=== PATIENT | female | born 1995 | race Caucasian/White ===

== ENCOUNTER 2020-08-20 20:33 | Emergency (ER) | payer OTHER, SELFPAY ==
[2020-08-20 20:49] VITALS: BP 127/85; PULSE 83; RESP 18; TEMP 36.8; O2SAT 99; BMI 24.2
--- NOTE | 2020-08-20 21:26 | ECG_ITS ---
[facility] Test Date: 2020-08-20 Pat Name: Kassandra Ureña Department: Room: Gender: Female Ultrasonographer: : 1995 Requested By: Adina Hurtado Order Number: [id number] Sha MD: LON [place]ORADO Measurements Intervals [place] Rate: 66 P: 62 [place]: 138 QRS: 82 QRSD: 96 T: 51 QT: 409 QTc: 431 Interpretive Statements SINUS RHYTHM INCOMPLETE RIGHT BUNDLE BRANCH BLOCK [90+ ms QRS DURATION, TERMINAL R IN V1/V2, 40+ ms S IN I/aVL/V4/V5/V6] No previous ECG available for comparison Electronically Signed On 08-21-2020 18:40:26 CDT by LON COLORADO [id number] f
[2020-08-20 21:28] VITALS: BP 123/81; PULSE 76; RESP 18; O2SAT 100
[2020-08-20] MEDS: sodium chloride 0.9% 1,000 ML 999 ML IV ×2 (21:40→22:38)
[2020-08-20 21:42] VITALS: BP 121/78; PULSE 68; RESP 17; O2SAT 99
[2020-08-20 21:44] VITALS: BP 106/58; BP 119/76; BP 129/76; PULSE 105; PULSE 72; PULSE 93
[2020-08-20 21:44] LABS: Basophils % 0.5 %; Eosinophils # 0.1 10^3/uL (0.0-0.8); Eosinophils % 0.8 %; Hematocrit 40.3 % (37.0-47.0); Hemoglobin 13.6 g/dL (11.5-15.3); Lymphocytes # 2.5 10^3/uL (0.8-4.8); Lymphocytes % 40.6 %; Mean Corpuscular HGB Conc 33.7 g/dL (30.0-36.0); Mean Corpuscular Hemoglobin 32.3 pg (28.0-34.0); Mean Corpuscular Volume 95.7 fL (81-99); Mean Platelet Volume 11.4 fL (7.4-10.4); Monocytes # 0.5 10^3/uL (0.2-0.9); Monocytes % 8.5 %; Neutrophils # 3.05 10^3/uL (1.8-7.7); Neutrophils % 49.3 %; Nucleated Red Blood Cells % 0 %; Platelet Count 224 10^3/cmm (130-400); Red Blood Count 4.21 10^6/uL (4.1-5.3); Red Cell Distribution Width 12.1 % (12.1-15.1); White Blood Count 6.2 10^3/uL (4.0-10.0)
[2020-08-20 21:56] LABS: HCG, Serum Qual Negative (Negative)
[2020-08-20 21:59] LABS: Alanine Aminotransferase 15 U/L (0-33); Albumin Level 4.8 g/dL (3.5-5.2); Alkaline Phosphatase 42 IU/L (35-105); Aspartate Amino Transferase 26 U/L (0-32); Blood Urea Nitrogen 6 mg/dL (6-20); Calcium 9.3 mg/dL (8.5-10.5); Carbon Dioxide 23 mmol/L (22-29); Chloride 105 mmol/L (98-107); Globulin 2.3 g/dL (1.3-4.6); Glomerular Filtration Rate 103.7 mL/min (90-130); Glucose 86 mg/dL (65-115); Osmolality Calculated 287 mOsm/kg (285-295); Sodium 140 mmol/L (136-145); Total Bilirubin 0.2 mg/dL (0.15-1.2); Total Protein 7.1 g/dL (6.6-8.7)
--- NOTE | 2020-08-20 22:03 | W.ED.DIZZY ---
HPI - Dizziness General: Chief Complaint: Dizziness Stated Complaint: 55-182 HR RATE, DIZZY, COLD Time Seen by Provider: 08/20/20 21:25 Source: patient Mode of arrival: ambulatory Limitations: no limitations History of Present Illness: HPI Narrative: 25-year-old female who states that throughout the day she has felt very anxious and has had some slight dizziness. States her heart rate has been bouncing around has been up in the 100s. She denies any vomiting or diarrhea. She states she does have anxiety and takes meds that did take an extra medicine. States her symptoms are worse with standing improved with rest. Denies any vomiting diarrhea. Denies any chest pain. Denies any headache. She has not had any syncopal events or near syncope. Associated symptoms: Denies chest pain, chills, nausea or vomiting Review of Systems Const: Denies: fever(s), chills, body aches or change in appetite Eyes: Denies: blurry vision or eye discomfort ENMT: Denies: throat pain or dental pain Card: Denies: chest pain Resp: Denies: dyspnea GI: Denies: abdominal pain, nausea, vomiting or diarrhea : Denies: dysuria Musc: Denies: neck pain or back pain Skin/Breast: Denies: rash Neuro: Reports: dizziness Psych: Denies: depression Yuriy/Lymph: Denies: easy bruising All/Imm: Denies: urticaria Physical Exam Const: COMMON NORMALS: no acute distress, patient oriented x3 and healthy appearing HENMT: COMMON NORMALS: normocephalic and atraumatic HEAD & SCALP: normocephalic and atraumatic Eye: COMMON NORMALS: Equal, round and reactive pupils present and EOMs intact bilaterally PUPIL: Yes Equal, round and reactive pupils present Neck/C-Spine: COMMON NORMALS: full ROM and supple Chest: COMMONS NORMALS: normal inspection of the chest and normal palpation of entire chest wall Resp: COMMON NORMALS: normal respiratory effort, No retractions, No use of accessory muscles and clear to auscultation bilaterally AUSCULTATION: clear to auscultation bilaterally Cardio: COMMON NORMALS: regular rate, regular rhythm and No murmurs present (Cardio) RATE: regular rate RHYTHM: regular rhythm GI: COMMON NORMALS: Normal to inspection, nondistended, normoactive bowel sounds present, Soft to palpation, non-tender and no masses PALPATION: Yes Soft to palpation Extremity: COMMON NORMALS: normal to inspection and full ROM Neuro: COMMON NORMALS: patient oriented x3, moves all extremities and no focal motor deficits Psych: COMMON NORMALS: mental status grossly normal, Normal thought process present and cooperative THOUGHT PROCESS: Normal thought process present Skin: COMMON NORMALS: no rashes or lesions noted and no wounds GENERAL SKIN EXAM: no rashes or lesions noted Course Vital Signs: Vital signs: Vital Signs Temperature 98.3 F 08/20/20 20:49 Pulse Rate 79 08/20/20 22:38 Respiratory Rate 21 H 08/20/20 22:38 Blood Pressure 135/78 08/20/20 22:38 Pulse Oximetry 100 08/20/20 22:38 MDM - Dizziness MDM Narrative: Medical decision making narrative: Patient presents here with some anxiety along with dizziness. Patient is well-appearing here and feels much improved after IV fluids. Her blood work here is all negative. She is stable for discharge is to follow-up with PCP and return if worsening. Lab Data: Labs: Lab Results 08/20/20 08/20/20 08/20/20 Range/Units 21:37 21:37 21:37 WBC 6.2 (4.0-10.0) 10^3/ uL RBC 4.21 (4.1-5.3) 10^6/u L Hgb 13.6 (11.5-15.3) g/dL Hct 40.3 (37.0-47.0) % MCV 95.7 (81-99) fL MCH 32.3 (28.0-34.0) pg MCHC 33.7 (30.0-36.0) g/dL RDW 12.1 (12.1-15.1) % Plt Count 224 (130-400) 10^3/c mm MPV 11.4 H (7.4-10.4) fL Neut % (Auto) 49.3 % Lymph % (Auto) 40.6 % Placer % (Auto) 8.5 % Eos % (Auto) 0.8 % Baso % (Auto) 0.5 % Neut # (Auto) 3.05 (1.8-7.7) 10^3/u L Lymph # (Auto) 2.5 (0.8-4.8) 10^3/u L Placer # (Auto) 0.5 (0.2-0.9) 10^3/u L Eos # (Auto) 0.1 (0.0-0.8) 10^3/u L Baso # (Auto) 0.0 (0.0-0.1) 10^3/u L Nucleated RBC % (a uto) 0 % Nucleated RBCs # 0.0 /100WBC Sodium 140 (136-145) mmol/L Potassium 3.5 (3.5-5.1) mmol/L Chloride 105 (98-107) mmol/L Carbon Dioxide 23 (22-29) mmol/L Anion Gap 15.5 (5-19) BUN 6 (6-20) mg/dL Creatinine 0.7 (0.5-0.9) mg/dL GFR Calculation 103.7 (90-130) mL/min Glucose 86 (65-115) mg/dL Calculated Osmolal ity 287 (285-295) mOsm/k g Calcium 9.3 (8.5-10.5) mg/dL Total Bilirubin 0.2 (0.15-1.2) mg/dL AST 26 (0-32) U/L ALT 15 (0-33) U/L Alkaline Phosphata se 42 (35-105) IU/L Total Protein 7.1 (6.6-8.7) g/dL Albumin 4.8 (3.5-5.2) g/dL Globulin 2.3 (1.3-4.6) g/dL HCG, Qual Negative (Negative) Urine Color (Yellow) Urine Appearance (CLEAR) Urine pH (5-7) Ur Specific Gravit y (1.005-1.030) Urine Protein (Negative) Urine Glucose (UA) (Normal) Urine Ketones (Negative) Urine Blood (Negative) Urine Nitrate (Negative) Urine Bilirubin (Negative) Urine Urobilinogen (Negative) mg/dL Ur Leukocyte Saundra ase (Negative) 08/20/20 Range/Units 22:26 WBC (4.0-10.0) 10^3/ uL RBC (4.1-5.3) 10^6/u L Hgb (11.5-15.3) g/dL Hct (37.0-47.0) % MCV (81-99) fL MCH (28.0-34.0) pg MCHC (30.0-36.0) g/dL RDW (12.1-15.1) % Plt Count (130-400) 10^3/c mm MPV (7.4-10.4) fL Neut % (Auto) % Lymph % (Auto) % Placer % (Auto) % Eos % (Auto) % Baso % (Auto) % Neut # (Auto) (1.8-7.7) 10^3/u L Lymph # (Auto) (0.8-4.8) 10^3/u L Placer # (Auto) (0.2-0.9) 10^3/u L Eos # (Auto) (0.0-0.8) 10^3/u L Baso # (Auto) (0.0-0.1) 10^3/u L Nucleated RBC % (a uto) % Nucleated RBCs # /100WBC Sodium (136-145) mmol/L Potassium (3.5-5.1) mmol/L Chloride (98-107) mmol/L Carbon Dioxide (22-29) mmol/L Anion Gap (5-19) BUN (6-20) mg/dL Creatinine (0.5-0.9) mg/dL GFR Calculation (90-130) mL/min Glucose (65-115) mg/dL Calculated Osmolal ity (285-295) mOsm/k g Calcium (8.5-10.5) mg/dL Total Bilirubin (0.15-1.2) mg/dL AST (0-32) U/L ALT (0-33) U/L Alkaline Phosphata se (35-105) IU/L Total Protein (6.6-8.7) g/dL Albumin (3.5-5.2) g/dL Globulin (1.3-4.6) g/dL HCG, Qual (Negative) Urine Color Yellow (Yellow) Urine Appearance Clear (CLEAR) Urine pH 5 (5-7) Ur Specific Gravit y 1.020 (1.005-1.030) Urine Protein Neg (Negative) Urine Glucose (UA) Norm (Normal) Urine Ketones Negative (Negative) Urine Blood Neg (Negative) Urine Nitrate Negative (Negative) Urine Bilirubin Neg (Negative) Urine Urobilinogen Norm (Negative) mg/dL Ur Leukocyte Saundra ase Negative (Negative) EKG Data^: EKG 1: Attestation: I personally reviewed and interpreted this EKG as follows: EKG interpretation date: 08/20/20 EKG interpretation time: 21:43 Interpretation: nsr hr [address] or t wave abnormalities qrs 96 qtc 423 Discharge Plan Discharge Patient Disposition: Home Clinical Impression: Dizziness Condition: Stable Discharge Orders: Discharge ED (Routine); Ordered 08/20/20 Ordered By: Adina Hurtado Discharge Diet: Advance as tolerated Discharge Activity: Resume usual activity Patient Instructions: Dizziness (ED) Coding Level of Care Code ED Crm Technical Lead for Chg Fwd Exam Comprehensive
[2020-08-20 22:06] LABS: Anion Gap 15.5 (5-19); Potassium 3.5 mmol/L (3.5-5.1)
[2020-08-20 22:35] LABS: Add Urine Microscopic? NO; Charge for UA Resulting for Rev
[2020-08-20 22:38] VITALS: BP 135/78; PULSE 79; RESP 21; O2SAT 100
[2020-08-20 22:39] LABS: Bilirubin Urine Neg (Negative); Blood Urine Neg (Negative); Glucose Urine UA Norm (Normal); Ketones Urine Negative (Negative); Leukocyte Esterase Urine Negative (Negative); Nitrate Urine Negative (Negative); Protein Urine Neg (Negative); Urine Appearance Clear (CLEAR); Urine Color Yellow (Yellow); Urobilinogen Urine Norm (Negative); pH Urine 5 (5-7)
[2020-08-20 23:11] VITALS: BP 129/79; PULSE 75; RESP 20; O2SAT 100
== END 2020-08-20 23:11 | disposition home or self-care (01) ==
PROVIDERS: Emergency Provider Emergency Medicine
DX: R42 Dizziness and giddiness (principal)
CPT/HCPCS: 80053; 81003; 84703; 85025; 93005; 96360; 96361; 99284; J7030